=== PATIENT | male | born 1965 | race Hispanic/Latino ===

== ENCOUNTER 2018-01-06 15:15 | Observation (INO) | payer BC ==
[2018-01-06 16:03] VITALS: BMI 36.5
[2018-01-06 17:20] LABS: BASO # 0.03 K/mm3 (0.0-2.0); BASO % 0.4 % (0.0-3.0); EOS # 0.2 (0.0-0.7); GRAN # 4.82 (1.4-6.5); GRAN % 60.7 % (50.0-68.0); HEMOGLOBIN 13.6 g/dL (14.0-18.0); LYMPH # 2.4 (1.2-3.4); LYMPH % 29.8 % (22.0-35.0); MEAN CELL VOLUME 79.2 fl (80.0-105.0); MEAN CORPUSCULAR HGB CONC 34.1 g/dl (31.0-37.0); MONO # 0.5 (0.1-0.6); MONO % 6.1 % (1.0-6.0); RBC 5.04 10^6/uL (3.5-6.1); RED CELL DISTRIBUTION WIDTH 15.2 % (11.5-14.5); WHITE BLOOD COUNT 7.9 10^3/ul (4.5-11.0)
[2018-01-06 17:25] LABS: ALB/GLOB RATIO 1.4 (1.1-1.8); ALBUMIN 4.4 g/dL (3.0-4.8); ALT/SGPT 73 U/L (7-56); AST/SGOT 51 U/L (17-59); BLOOD UREA NITROGEN 21 mg/dL (7-21); CALCIUM 10.2 mg/dL (8.4-10.5); GFR AFRICAN-AMERICAN > 60; GFR NON-AFRICAN AMERICAN > 60
[2018-01-06 17:40] LABS: PROTHROMBIN TIME 12.5 SECONDS (9.4-12.5)
[2018-01-06 17:41] LABS: INR 1.09 (0.93-1.08); PARTIAL THROMBOPLASTIN TIME 41.8 Seconds (25.1-36.5)
--- NOTE | 2018-01-06 18:24 | ED PDOC ---
Arrival/HPI - General Chief Complaint: GI Problem Time Seen by Provider: 01/06/18 15:20 Historian: Patient - History of Present Illness Narrative History of Present Illness (Text): 01/06/18 18:21 52 year old male referred to the Emergency department by Dr. Landa GI, presents complaining of blood in the rectum. patient had a colonoscopy 2 days ago with 3 polyps removes. Patient reports bright red blood from the rectum since the procedure. Patient had been on Coumadin for diagnosed PE last march but had stopped the Coumadin for the procedure. patient is currently on Coumadin and Lovenox. Patient denies any fever, chills, chest pain, shortness of breath, weakness, nausea, vomiting, diarrhea, urinary symptoms, back pain, neck pain, headache, dizziness, or any other complaints. Time/Duration: < week (2 days) Symptom Onset: Sudden Symptom Course: Unchanged Context: Home Past Medical History - Provider Review Nursing Documentation Reviewed: Yes - Pulmonary Hx Pulmonary Embolism: Yes - Psychiatric Hx Substance Use: No - Surgical History Other/Comment: Lap Band Sx. Bilateral Varicocele Family/Social History - Physician Review Nursing Documentation Reviewed: Yes Family/Social History: Unknown Family HX Smoking Status: Never Smoked Hx Alcohol Use: Yes Frequency of alcohol use: Socially Hx Substance Use: No Allergies/Home Meds Allergies/Adverse Reactions: Allergies shellfish Allergy (Uncoded 01/06/18 16:30) RASH Home Medications: Home Meds Medication Instructions Recorded Confirmed Amlodipine Besylate/Benazepril 5 mg PO ONCE 01/06/18 01/06/18 [Amlodipine-Benazepril 2.5-10] Review of Systems - Physician Review All systems were reviewed & negative as marked: Yes - Review of Systems Constitutional: absent: Fevers, Night Sweats Respiratory: absent: SOB Cardiovascular: absent: Chest Pain Gastrointestinal: Hematochezia. absent: Diarrhea, Nausea, Vomiting Genitourinary Male: absent: Dysuria Musculoskeletal: absent: Back Pain, Neck Pain Neurological: absent: Headache, Dizziness, Focal Weakness Physical Exam Vital Signs Reviewed: Yes Vital Signs Temp Pulse Resp BP Pulse Ox 01/06/18 21:35 67 137/88 01/06/18 15:49 98.5 F 76 16 142/95 H 99 Temperature: Afebrile Blood Pressure: Hypertensive Pulse: Regular Respiratory Rate: Normal Appearance: Positive for: Well-Appearing, Non-Toxic, Comfortable Pain Distress: None Mental Status: Positive for: Alert and Oriented X 3 - Systems Exam Head: Present: Atraumatic, Normocephalic Pupils: Present: PERRL Extroacular Muscles: Present: EOMI Conjunctiva: Present: Normal Mouth: Present: Moist Mucous Membranes Neck: Present: Normal Range of Motion Respiratory/Chest: Present: Clear to Auscultation, Good Air Exchange. No: Respiratory Distress, Accessory Muscle Use Cardiovascular: Present: Regular Rate and Rhythm, Normal S1, S2. No: Murmurs Abdomen: No: Tenderness, Distention, Peritoneal Signs Back: Present: Normal Inspection Upper Extremity: Present: Normal Inspection. No: Cyanosis, Edema Lower Extremity: Present: Normal Inspection. No: Edema Neurological: Present: GCS=15, CN II-XII Intact, Speech Normal Skin: Present: Warm, Dry, Normal Color. No: Rashes Psychiatric: Present: Alert, Oriented x 3, Normal Insight, Normal Concentration Medical Decision Making ED Course and Treatment: 01/06/18 18:26 Impression: 52 year old male presents to the Emergency department complaining of blood from the rectum. Plan: -- Consult with Dr. Landa -- Reassess and disposition Progress Notes: - Lab Interpretations Lab Results: 01/06/18 17:00 01/06/18 17:00 Lab Results 01/06/18 17:00: Blood Type A POSITIVE, Antibody Screen Negative, BBK History Checked No verified bt 01/06/18 17:00: PT 12.5, INR 1.09 H, APTT 41.8 H 01/06/18 17:00: WBC 7.9, RBC 5.04, Hgb 13.6 L, Hct 39.9 L, MCV 79.2 L, MCH 27.0 , MCHC 34.1, RDW 15.2 H, Plt Count 257, MPV 10.0, Gran % 60.7, Lymph % (Auto) 29.8, Nash % (Auto) 6.1 H, Eos % (Auto) 3.0, Baso % (Auto) 0.4, Gran # 4.82, Lymph # (Auto) 2.4, Nash # (Auto) 0.5, Eos # (Auto) 0.2, Baso # (Auto) 0.03 05/24/18 17:00: Sodium 144, Potassium 4.1, Chloride 106, Carbon Dioxide 26, Anion Gap 16, BUN 21, Creatinine 1.1, Est GFR ( Amer) > 60, Est GFR (Non- Af Amer) > 60, Random Glucose 100, Calcium 10.2, Total Bilirubin 0.3, AST 51, ALT 73 H, Alkaline Phosphatase 52, Total Protein 7.4, Albumin 4.4, Globulin 3.1 , Albumin/Globulin Ratio 1.4 - Medication Orders Current Medication Orders: Amlodipine Besylate (Norvasc) 5 mg PO DAILY [facility] Last Admin: 01/06/18 21:35 Dose: 5 mg MAR Pulse and Blood Pressure Document 01/06/18 21:35 KOPPS (Rec: 01/06/18 21:36 KOPPS [id number]) Pulse Pulse Rate (60-90) 67 Blood Pressure Blood Pressure (100/60-150/90) 137/88 Discontinued Medications Polyethylene Glycol/Electrolytes (Golytely) 4,000 ml PO ONCE ONE Stop: 01/06/18 19:48 Last Admin: 01/06/18 20:19 Dose: 4,000 ml - Scribe Statement The provider has reviewed the documentation as recorded by the Raheem Murphy Provider Scribe Attestation: All medical record entries made by the Scribbeverly were at my direction and personally dictated by me. I have reviewed the chart and agree that the record accurately reflects my personal performance of the history, physical exam, medical decision making, and the department course for this patient. I have also personally directed, reviewed, and agree with the discharge instructions and disposition. Disposition/Present on Arrival - Present on Arrival Any Indicators Present on Arrival: No History of DVT/PE: Yes History of Uncontrolled Diabetes: No Urinary Catheter: No History of Decub. Ulcer: No History Surgical Site Infection Following: None - Disposition Have Diagnosis and Disposition been Completed?: Yes Diagnosis: BRBPR (bright red blood per rectum) Disposition: HOSPITALIZED Disposition Time: 17:30 Condition: STABLE
[2018-01-06] MEDS ORDERED: Peg-Electrolyte Oral Soln 4L (Golytely) PO ONE (19:47)
[2018-01-07 07:08] LABS: HEMOGLOBIN 12.7 g/dL (14.0-18.0); MEAN CELL VOLUME 78.7 fl (80.0-105.0); MEAN CORPUSCULAR HEMOGLOBIN 26.3 pg (25.0-35.0); MEAN CORPUSCULAR HGB CONC 33.4 g/dl (31.0-37.0); MEAN PLATELET VOLUME 9.9 fl (7.0-11.0); RBC 4.83 10^6/uL (3.5-6.1); WHITE BLOOD COUNT 6.4 10^3/ul (4.5-11.0)
--- NOTE | 2018-01-07 09:49 | CON ---
DATE: 01/07/2018 CONSULTATION GASTROENTEROLOGY REQUESTING PHYSICIAN: Odell Henley MD. REASON FOR CONSULT: I have been asked to see this 52-year-old male with a history of partial factor V Leiden deficiency, history of DVT, who had a colonoscopy with removal of 2 large polyps and 1 small polyp on 01/04/2018, who called me yesterday with the development of rectal bleeding. The patient was started on Lovenox the morning after the procedure as well as Coumadin. He denies any abdominal pain, nausea, vomiting. Rectal exam showed the presence of dark red blood when I saw him in the office. I advised him to come to the hospital for further treatment and management. He denies any abdominal pain, nausea or vomiting. His hemoglobin on admission to the hospital was 13.6 and this morning it is 12.7. He was given a bowel prep last night in anticipation of a colonoscopy this morning. The patient states that there was a moderate amount of blood with a bowel prep. PAST MEDICAL HISTORY: Notable for DVT, pulmonary embolism, partial factor V Leiden deficiency. Hypertension. PAST SURGICAL HISTORY: Notable for a lap band several years ago as well as bilateral varicocele. SOCIAL HISTORY: He denies cigarette smoking. He consumes alcohol socially. FAMILY HISTORY: Noncontributory. ALLERGIES: HE IS ALLERGIC TO SHELLFISH, WHICH GIVES HIM A RASH. MEDICATIONS AT HOME: Include amlodipine, benazepril 2.5 mg-10 mg. REVIEW OF SYSTEMS: Fourteen-point review of systems is notable for lower GI bleeding. PHYSICAL EXAMINATION: GENERAL: Well-developed male lying in bed, in no acute distress. VITAL SIGNS: Reveal temperature of 97.8, blood pressure 135/89, heart rate of 66. His BMI is 36.5. HEENT: Reveals sclerae to be white. Conjunctivae pink. NECK: Supple. CHEST: Reveals lungs are clear. HEART: Reveals a regular rate and rhythm. ABDOMEN: Soft, nontender. He has a lap band port in the upper mid abdomen. EXTREMITIES: Show no edema. LABORATORY DATA: Reveals white blood cell count 6.4, hemoglobin 12.7 this morning. Chemistries reveal normal electrolytes with an ALT of 73. PT, INR, PTT are 12.5, 1.09 and 41.8. IMPRESSION: Post polypectomy lower gastrointestinal bleed precipitated by anticoagulant therapy for history of partial factor V deficiency and history of deep venous thrombosis and PE. His hemoglobin is stable. He is hemodynamically stable. RECOMMENDATIONS: To do a therapeutic colonoscopy with probable placement of more Hemoclips at the polypectomy sites. Mahin Landa MD MTDD
[2018-01-07] MEDS ORDERED: Propofol 10 mg/ml Inj (20 ML) ONE ×2 (10:25→10:27)
[2018-01-07 11:26] VITALS: RESP 12; TEMP 98; O2SAT 100
[2018-01-07] MEDS ORDERED: Sodium Chloride 0.9% 1,000 ML IV SCH (11:30)
[2018-01-07 11:48] LABS: MEAN CELL VOLUME 79.3 fl (80.0-105.0); MEAN CORPUSCULAR HEMOGLOBIN 26.7 pg (25.0-35.0); MEAN CORPUSCULAR HGB CONC 33.6 g/dl (31.0-37.0); MEAN PLATELET VOLUME 9.5 fl (7.0-11.0); RBC 4.5 10^6/uL (3.5-6.1); RED CELL DISTRIBUTION WIDTH 14.9 % (11.5-14.5)
[2018-01-07 11:51] VITALS: BP 137/83
[2018-01-07 15:15] VITALS: PULSE 60
--- NOTE | 2018-01-07 22:18 | HP ---
DATE OF SERVICE: 01/07/2018 HISTORY OF PRESENT ILLNESS: The patient is a 52 years old, patient of Dr. Parekh, had routine colonoscopy done on 01/04/2018 and two polyps were removed; since yesterday, started to have rectal bleeding, so he called Dr. Landa who advised him to come to emergency room for followup colonoscopy. Denies any abdominal pain, history of weakness, dizziness. No hemoptysis. No hematemesis. No fever. No chills. No history of diarrhea. The patient does have history of coagulopathy and he has history of DVT. He has factor V Leiden deficiency, for that he is on Coumadin, so he was bridged with Lovenox. He was started on Coumadin and Lovenox the next day of procedure. PAST MEDICAL HISTORY: Also significant for hypertension, history of DVT. PAST SURGICAL HISTORY: Significant for: 1. Lap band procedure. 2. History of bilateral varicocele surgery. 3. Cervical diskectomy because of disk herniation. ALLERGIES: HE IS ALLERGIC TO SHELLFISH AND HE GETS RASH WITH THAT. SOCIAL HISTORY: He does admit smoking and he socially drinks. REVIEW OF SYSTEMS: Significant for rectal discomfort. PHYSICAL EXAMINATION: GENERAL: Today, he is awake, alert, oriented with that procedure done. VITAL SIGNS: He is afebrile, pulse 56, respirations 12, blood pressure 137/83. LUNGS: Bilateral good airflow. No rhonchi or crackle. HEART: S1 and S2 audible. ABDOMEN: Soft, nontender. No rebound, no guarding. NEUROLOGIC: He is awake, alert, oriented, communicative. LABORATORY DATA: WBC 6.3, hemoglobin 12, hematocrit 35.7, platelets 196. Chemistry: Sodium 144, potassium 4.1, chloride 106, CO2 26, BUN 21, creatinine 1.1, blood sugar of 100. ASSESSMENT: 1. Rectal bleeding, status post colonoscopy and polypectomy on 01/04/2018. 2. History of factor V Leiden deficiency. 3. History of deep vein thrombosis. 4. Hypertension. 5. History of laparoscopic lap band. PLAN: The patient will be transferred to . CBC will be done and he will be started on clear liquids. If his hemoglobin is stable, he will be discharged later on today and follow up with Dr. Landa as an outpatient. Odell Henley MD [facility] # [id number]
== END 2018-01-07 15:42 | disposition home or self-care (01) ==
LOC: ED 15:15 → ERH 18:11 → 2RSO 20:05
PROVIDERS: ADMIT Internal Medicine; ATTEND Internal Medicine
DX: K91.840 Postprocedural hemorrhage of a digestive system organ or structure following a digestive system procedure (principal); Y83.8 Other surgical procedures as the cause of abnormal reaction of the patient, or of later complication, without mention of misadventure at the time of the procedure; D68.2 Hereditary deficiency of other clotting factors; I10 Essential (primary) hypertension; Z86.711 Personal history of pulmonary embolism; Z86.718 Personal history of other venous thrombosis and embolism; Z79.01 Long term (current) use of anticoagulants; Z98.84 Bariatric surgery status
CPT/HCPCS: 36415; 45382; 80053; 85025; 85027; 85610; 85730; 86850; 86900; 99285; G0378; J2704; J7040